=== PATIENT | male | born 1995 | race Caucasian/White ===

== ENCOUNTER 2024-08-04 22:50 | Emergency (ER) | payer OTHER, SELFPAY ==
--- NOTE | ~2024-08-04 | XR_ITS ---
HISTORY: Crushed between metal COMPARISON: None TECHNIQUE: 3 views of the right hand were performed. FINDINGS: No acute fracture is identified. The joint spaces are preserved. The carpal arcs are intact. Bone mineralization is unremarkable. Soft tissue swelling along the thenar and hyperthenar eminence. No radiopaque foreign body is identified. IMPRESSION: No acute fracture or dislocation within the right hand, as detailed above. Reviewed, dictated and finalized at location A.
[2024-08-04 22:55] VITALS: BP 141/72; PULSE 76; RESP 14; TEMP 36.3; O2SAT 98
--- NOTE | 2024-08-05 00:56 | ED.UPPEXIN ---
HPI - Extremity Injury (Upper) General Chief Complaint: Extremity Injury, Upper Stated Complaint: Right hand crush injury Time Seen by Provider: 08/05/24 00:20 Source: patient Mode of arrival: ambulatory Limitations: no limitations History of Present Illness HPI narrative: This is a 28 year old male that presents to the ER for right hand injury. Reports he got his hand caught between a dumpster and a forklift. Reports pain at the MCP joints. Reports decreased ROM due to pain. Denies numbness. Related Data Allergies Allergy/AdvReac Type Severity Reaction Status Date / Time No Known Allergies Allergy Verified 08/05/24 00:22 Review of Systems Review of Systems: CONSTITUTIONAL: Denies fever MUSCULOSKELETAL: Reports joint pain, and myalgia. NEUROLOGIC: Denies numbness All systems reviewed & are unremarkable except as noted in HPI and below PMFSH Social History Social History (Updated 08/05/24 @ 01:00 by Brandi Alcantara PA-C) Smoking status: Current every day smoker Exam Narrative: GENERAL: Well-appearing, well-nourished, and in no acute distress. HEAD: Normocephalic, atraumatic. EYES: EOMI. EXTREMITIES: Decreased active ROM at the MCP joints due to pain. No edema or obvious deformity. Normal radial pulse. Normal sensation SKIN: Warm, dry, no rash. NEURO: No focal deficits. Alert and oriented x3. PSYCH: Normal mood and affect Course Course Emergency Course: Patient updated on his workup and agrees with plan of care Vital Signs Vital signs: Vital Signs Temperature 97.4 F L 08/04/24 22:55 Pulse Rate 76 08/04/24 22:55 Respiratory Rate 14 08/04/24 22:55 Blood Pressure 141/72 H 08/04/24 22:55 Pulse Oximetry 98 08/04/24 22:55 Oxygen Delivery Room Air 08/04/24 22:55 Temperature 97.4 F L 08/04/24 22:55 Pulse Rate 76 08/04/24 22:55 Respiratory Rate 14 08/04/24 22:55 Blood Pressure 141/72 H 08/04/24 22:55 Pulse Oximetry 98 08/04/24 22:55 Oxygen Delivery Room Air 08/04/24 22:55 MDM - Extremity Injury (Upper) MDM Narrative Medical decision making narrative: Patient presents the emergency department after a right hand injury. Patient is neurovascularly intact. Right hand x-ray without acute osseous abnormalities. Patient instructed to rest, ice and take over the counter medication as needed. He is to follow up with primary provider. He was given warnings to return to the ER Differential Diagnosis Differential diagnosis: Likely fracture of hand and other (contusion) Imaging Data Radiologist's impression: ITS Impressions Hand X-Ray 08/04/24 23:54 IMPRESSION: No acute fracture or dislocation within the right hand, as detailed above. Critical Care Time Critical Care Time Critical Care Time: No Discharge Plan Discharge Clinical Impression: Crush injury Patient Disposition: Home, Self-Care Condition: Stable Instructions: Crush Injury (ED) Additional Instructions: Return to the ER if you experience fever, redness and swelling of your extremity, numbness, your hand feels cold, or any other symptoms that are concerning to you Ice and elevate extremity. Tylenol or ibuprofen as needed for pain Follow up with your doctor for further care. Patient Language: Puerto Rican Follow-up/Referrals: PHYSICIAN NOT ON STAFF,NONSTAFF [Primary Care Provider] -
[2024-08-05] MEDS: KETOROLAC 30 MG/ML VIAL (*BKC) IM (01:18)
== END 2024-08-05 01:20 | disposition home or self-care (01) ==
PROVIDERS: Emergency Provider Physician Assistant
DX: S67.21XA Crushing injury of right hand, initial encounter (principal); F17.210 Nicotine dependence, cigarettes, uncomplicated; W23.2XXA Caught, crushed, jammed or pinched between a moving and stationary object, initial encounter
CPT/HCPCS: 73130; 96372; 99283; J1885

== ENCOUNTER 2025-03-18 13:17 | Emergency (ER) | payer BC, SELFPAY ==
[2025-03-18 13:30] VITALS: BP 140/80; PULSE 139; RESP 16; TEMP 37.1; O2SAT 99
--- NOTE | 2025-03-18 14:24 | ED_ITS ---
HPI - Nausea/Vomiting/Diarrhea General Chief complaint: Nausea/Vomiting/Diarrhea Stated complaint: Vomiting Time Seen by Provider: 03/18/25 14:14 Source: patient and RN notes reviewed Mode of arrival: ambulatory Limitations: no limitations History of Present Illness HPI Narrative: 29-year-old male patient presents today complaining of 2 day history of nasal congestion, headache, sore throat with vomiting that started at midnight x2 and diarrhea that started 8:00 a.m. this morning x3. No blood or mucus in the stool. No abdominal pain. Patient also reports a fever up to 100 last night but none since that time. Denies any known sick contacts. Currently rates his sore throat 11/26 and has tried some Mucinex with some improvement. Patient also was feeling better today and took some prework drink prior to arrival in preparation for the gym. Related Data Allergies Allergy/AdvReac Type Severity Reaction Status Date / Time No Known Allergies Allergy Verified 03/18/25 13:44 [facility] Social History Social History (Reviewed 03/18/25 @ 14:28 by Natacha Mcguire, DICTAPHONE TRANSCRIBER, COMPUTER HARDWARE DESIGNER) Smoking status: Current every day smoker Comments At time of signature, I have reviewed and agree with nursing past medical, surgical, social and family history unless otherwise noted. Please see nursing chart for further information. There is no relevant family history pertinent to the presenting complaint Exam Narrative: GENERAL: Well-appearing, well-nourished, and in no acute distress. HEAD: Normocephalic, atraumatic. EYES: EOMI. No redness or drainage. Conjunctivae normal. ENT: Mucous membranes pink and moist. Nares clear. No rhinorrhea. TMs normal bilaterally. Throat erythematous and mildly edematous. Small white lesion to the right soft palate. Uvula midline. NECK: Normal AROM. Supple. No lymphadenopathy. CHEST: No respiratory distress. Clear to auscultation. HEART: Regular rhythm. No murmur appreciated.+ tachycardic ABDOMEN: Soft, nontender, nondistended, normal active bowel sounds. EXTREMITIES: Normal range of motion. No edema. SKIN: Warm, dry, no rash. Capillary refill normal. Normal skin turgor. NEURO: No focal deficits. Alert and oriented x3. Gait steady. PSYCH: Normal affect. No signs of depression or anxiety. Course Course Level of Care: Express Care Visit Vital Signs Vital signs: Vital Signs Temperature 98.7 F 03/18/25 13:30 Pulse Rate 139 H 03/18/25 13:30 Respiratory Rate 16 03/18/25 13:30 Blood Pressure 140/80 03/18/25 13:30 Pulse Oximetry 99 03/18/25 13:30 Oxygen Delivery Room Air 03/18/25 13:30 Temperature 98.7 F 03/18/25 13:30 Pulse Rate 139 H 03/18/25 13:30 Respiratory Rate 16 03/18/25 13:30 Blood Pressure 140/80 03/18/25 13:30 Pulse Oximetry 99 03/18/25 13:30 Oxygen Delivery Room Air 03/18/25 13:30 Review MDM - Nausea/Vomiting/Diarrhea MDM Narrative Medical decision making narrative: 29-year-old male patient presents today complaining of 2 day history of nasal congestion, headache, sore throat with vomiting that started at midnight x2 and diarrhea that started 8:00 a.m. this morning x3. No blood or mucus in the stool. No abdominal pain. Patient also reports a fever up to 100 last night but none since that time. Denies any known sick contacts. Currently rates his sore throat 7/10 and has tried some Mucinex with some improvement. Patient also was feeling better today and took some prework drink prior to arrival in preparation for the gym. Upon exam, patient has an erythematous throat with small lesion on the soft palate. Patient is also tachycardic at 139. Patient declines a strep testing. He will be prescribed a course of Zofran for his nausea. Symptoms likely viral in etiology. Discussed [id number] medication use and duration of illness. Strict ED precautions given. Tachycardia likely due to pre workout drink. Patient agrees with plan. Differential Diagnosis Differential diagnosis: Likely gastroenteritis, dehydration and other (Viral syndrome, strep throat, pharyngitis) Critical Care Time Critical Care Time Critical Care Time: No Discharge Plan Discharge Clinical Impression: Nausea vomiting and diarrhea Pharyngitis Qualifiers: Pharyngitis/tonsillitis etiology: unspecified etiology Qualified Code(s): J02.9 - Acute pharyngitis, unspecified Patient Disposition: Home Condition: Stable Instructions: Acute Nausea and Vomiting (ED), Acute Diarrhea (ED) Additional Instructions: Please take the Zofran as prescribed for any nausea and vomiting. Continue treating with [id number] medication as needed. Monitor your heart rate. Do not have anymore pre workout, especially while you are ill. As discussed, if symptoms worsen go to the ER for further evaluation. Patient Language: Marshallese Prescriptions: New ondansetron 4 mg tablet,disintegrating 4 mg PO TID PRN (Reason: nausea and vomiting) Qty: 15 0RF Follow-up/Referrals: PHYSICIAN,WEB DESIGN INTERN [Primary Care Provider, Internal Medicine] Stand Alone Forms: Work/School Release IP Time of Disposition: 14:35
== END 2025-03-18 14:43 | disposition home or self-care (01) ==
PROVIDERS: Emergency Provider Nurse Practitioner
DX: R11.2 Nausea with vomiting, unspecified (principal); R19.7 Diarrhea, unspecified; J02.9 Acute pharyngitis, unspecified; F17.200 Nicotine dependence, unspecified, uncomplicated
CPT/HCPCS: 99213; G0463